=== PATIENT | female | born 1965 | race Caucasian/White ===

== ENCOUNTER → 2017-05-09 | Outpatient (CLI) | payer OTHER ==
--- NOTE | 2017-05-09 17:24 | CT ---
EXAMINATION TYPE: CT chest w con DATE OF EXAM: 05/09/2017 COMPARISON: NONE HISTORY: Left arm swelling mid forearm through hand x 4 months. Lumpectomy after breast cancer to lef t side. CT DLP: 311.30 mGycm Automated exposure control for dose reduction was used. CONTRAST: CT scan of the chest is performed with IV Contrast, patient injected with 100 mL of Omnipaque 300. FINDINGS: There is minimal subpleural reticular density in the lingula left upper lobe. There is no evidence of a pulmonary mass. There is no pleural effusion. There is no mediastinal adenopathy. There are no hil ar masses. Heart size is normal. There are a few bilateral axillary lymph nodes and more on the right side that measure up to 12 mm. I see no bony destructive process. There is spurring in the thoracic spine. Thoracic aorta is intact. IMPRESSION: Minimal subpleural interstitial density in the lingula left upper lobe of uncertain sign ificance. I do not see a cause for left arm swelling.
== END | disposition home or self-care (01) ==
LOC: RADCTMAIN 16:47
PROVIDERS: ATTEND Internal Medicine Hematology & Oncology
DX: C50.212 Malignant neoplasm of upper-inner quadrant of left female breast (principal); Z88.2 Allergy status to sulfonamides
CPT/HCPCS: 71260; Q9967

== ENCOUNTER → 2017-10-25 | Outpatient (CLI) | payer OTHER ==
[2017-10-25 15:58] LABS: Basophils % (A) 1 %; Eosinophils # (A) 0.2 k/uL (0-0.7); Eosinophils % (A) 3 %; HCT 40.1 % (34.0-46.0); HGB 12.5 gm/dL (11.4-16.0); Lymphocytes # (A) 2.1 k/uL (1.0-4.8); Lymphocytes % (A) 27 %; MCH 30.3 pg (25.0-35.0); MCHC 31.2 g/dL (31.0-37.0); Mean Platelet Volume 6.4; Monocytes # (A) 0.4 k/uL (0-1.0); Monocytes % (A) 5 %; Neutrophils % (A) 63 %; Platelet Count 263 k/uL (150-450); RBC 4.14 m/uL (3.80-5.40); RDW 12.7 % (11.5-15.5); WBC 7.9 k/uL (3.8-10.6)
== END | disposition home or self-care (01) ==
LOC: LABPAT 15:43
PROVIDERS: ATTEND Obstetrics & Gynecology
DX: Z01.812 Encounter for preprocedural laboratory examination (principal); N85.00 Endometrial hyperplasia, unspecified
CPT/HCPCS: 36415; 85025

== ENCOUNTER 2017-10-31 05:49 | Day surgery (SDC) | payer OTHER ==
[2017-10-26 14:55] VITALS: BMI 27.4
[~2017-10-31 05:49] MED LIST: LACTATED RINGERS 1,000 ML IV SCH; MIDAZOLAM 2 MG/2 ML VIAL IV PRN; MORPHINE SULFATE 4 MG/ML SYRINGE IV PRN; ONDANSETRON 4 MG/2 ML VIAL IVP ONE; Pre Op ABX Message 1 EACH MISC MISCELLANE ONE; SCOPOLAMINE 1.5MG/72HR PATCH TRANSDERM ONE
[2017-10-31] MEDS ORDERED: LACTATED RINGERS 1,000 ML IV ONE (06:26)
[2017-10-31] MEDS ORDERED: DEXAMETHASONE SOD PHOS (MDV) 100 MG/10 ML VIAL IVP ONE (06:27)
[2017-10-31] MEDS ORDERED: MIDAZOLAM 2 MG/2 ML VIAL ONE (07:23)
[2017-10-31] MEDS ORDERED: PROPOFOL 10 MG/ML 20 ML VIAL IV ONE (07:23)
[2017-10-31] MEDS ORDERED: fentaNYL (PF) 50 MCG/ML 2 ML AMP ONE (07:23)
[2017-10-31] MEDS ORDERED: KETOROLAC 30 MG/ML 1 ML VIAL ONE (07:23)
[2017-10-31] MEDS ORDERED: LIDOCAINE 1% INJ 10MG/ML (20 ML MDV) ONE (07:23)
[2017-10-31 08:12] VITALS: TEMP 97.8
--- NOTE | 2017-10-31 08:19 | P.OP ---
Date of Procedure: 10/31/17 Preoperative Diagnosis: Postmenopausal bleeding, endometrial hyperplasia without atypia, patient on tamoxifen for breast cancer. Postoperative Diagnosis: Grade 2-3 uterine prolapse, large multiparous cervix, endometrial polyps. Procedure(s) Performed: Hysteroscopy, fractional D&C, polypectomy Anesthesia: PRIYANK Surgeon: Francie Spring Estimated Blood Loss (ml): 10 IV fluids (ml): 400 Urine output (ml): 500 Pathology: other (Endocervical and endometrial curettings) Condition: stable Disposition: PACU Operative Findings: Large multiparous cervix, grade 2-3 uterine prolapse, endometrial polyps. Negative adnexa bilaterally. Description of Procedure: Patient is brought to the operating suite where a general anesthetic is administered without difficulty. She's placed in the dorsal lithotomy position. The cervix, vagina, perineum and lower abdomen are all prepped and draped in the usual sterile fashion. The appropriate timeout is performed to assure proper patient and procedural identification. Bladder is drained for approximate 500 mL of clear yellow urine. Examination under anesthesia reveals a retroverted uterus slightly enlarged, very large multiparous cervix, negative adnexa bilaterally. The anterior lip of the cervix is gently grasped with a double-tooth tenaculum. Telfa is placed and a Kevorkian curette is used and endocervical curettage is performed. Uterus then sounds to a depth of 8 cm in the retroverted position. Cervix is gently and systematically dilated using Hanks dilators. The hysteroscope was placed and the cavity is distended using sterile saline. Inspection of the cavity reveals multiple small uterine polyps. No obvious masses fibroids or tumors are noted. Hysteroscope was removed. Cervix is then dilated completely and a medium sharp curette is used and the uterus is thoroughly and gently curettaged for a fair amount of tissue including multiple small polyps. When this is completed, a polyp forcep was introduced and an additional polyp is obtained. Hysteroscope is replaced, cavity is noted to be free of any remaining polyps or tissue. Toradol is given prior to leaving the operative suite. All sponge needle and enhancement counts are correct. Patient is brought back to the recovery room in good condition with stable vital signs including a pulse of 60, blood pressure 102/61, 99% O2 saturation. She will follow-up with me in the office in 2 weeks.
[2017-10-31 08:50] VITALS: PULSE 74
[2017-10-31 09:06] VITALS: BP 142/88; RESP 16
== END 2017-10-31 09:19 | disposition home or self-care (01) ==
LOC: OR 05:49
PROVIDERS: ATTEND Obstetrics & Gynecology
DX: N84.0 Polyp of corpus uteri (principal); N81.3 Complete uterovaginal prolapse; N88.8 Other specified noninflammatory disorders of cervix uteri; N95.0 Postmenopausal bleeding; Z85.3 Personal history of malignant neoplasm of breast; Z79.810 Long term (current) use of selective estrogen receptor modulators (SERMs); Z88.1 Allergy status to other antibiotic agents; Z88.2 Allergy status to sulfonamides; Z80.3 Family history of malignant neoplasm of breast; Z80.7 Family history of other malignant neoplasms of lymphoid, hematopoietic and related tissues; Z80.42 Family history of malignant neoplasm of prostate; Z87.891 Personal history of nicotine dependence
CPT/HCPCS: 88305; 58558; J2250; J2405; J2001; J3010; J1885; J1100; J2704

== ENCOUNTER 2020-06-06 07:14 | Emergency (ER) | payer OTHER ==
[2020-06-06] MEDS ORDERED: oxyCODONE-APAP 7.5-325MG 1 EACH TAB PO STA (07:39)
[2020-06-06] MEDS ORDERED: LIDOCAINE 5% PATCH TOPICAL STA (07:39)
--- NOTE | 2020-06-06 07:43 | ED ---
General Adult HPI - General Chief complaint: Chest Pain Stated complaint: chest pain Time Seen by Provider: 06/06/20 07:24 Source: patient, family Mode of arrival: wheelchair Limitations: no limitations - History of Present Illness Initial comments: Dictation was produced using [employer] dictation software. please excuse any grammatical, word or spelling errors. This patient was cared for during a federal and state declared state of emergency secondary to Covid 19 Chief Complaint: 55-year-old female presents with 1 week of left-sided chest pain. History of Present Illness: 55-year-old female presents with 1 week of left- sided chest pain. Prior to onset of her symptoms she was moving around furniture to reorganizes her house. Patient states that her pain is located to the left anterior chest pressure she has history of breast cancer to the left breast that is currently in remission. Patient states she has pain over the left anterior ribs. Worse with movement and palpation to the area. Patient denies any pressure-like sensation to the substernal area. There is no radiation to the shoulders or jaw. No associated dizziness or diaphoresis. Patient has no history of heart disease. Patient denies any shortness of breath. Symptoms are worse with movement. The ROS documented in this emergency department record has been reviewed and confirmed by me. Those systems with pertinent positive or negative responses have been documented in the HPI. All other systems are other negative and/or noncontributory. PHYSICAL EXAM: General Impression: Alert and oriented x3, not in acute distress HEENT: Normocephalic atraumatic, extra-ocular movements intact, pupils equal and reactive to light bilaterally, mucous membranes moist. Cardiovascular: Heart regular rate and rhythm Chest: Able to complete full sentences, no retractions, no tachypnea palpatory tenderness to the left rib margin at approximately leave the eighth and ninth anterior ribs Abdomen: abdomen soft, non-tender, non-distended, no organomegaly Musculoskeletal: Pulses present and equal in all extremities, no peripheral edema Motor: no focal deficits noted Neurological: CN II-XII grossly intact, no focal motor or sensory deficits noted Skin: Intact with no visualized rashes Psych: Normal affect and mood ED course: 55-year-old female presents with clinical presentation consistent with costochondritis. All signs upon arrival are within acceptable limits. EKGs benign. Patient does not have any symptoms suggestive of ACS type chest pain. Pain is clearly reproducible at bedside. Rib x-rays a chest x-ray shows left sixth rib fracture. Patient is reevaluated at bedside. She is notified of the x-ray results. Patient given Lidoderm patch and analgesics coma. Patient given return precautions. Patient will be discharged told to follow-up with primary care physician. EKG interpretation: Ventricular rate 77, normal sinus rhythm, DC interval 164, QRS 82, QTc 439. No DC prolongation, no QTC prolongation, no ST or T-wave changes noted. Overall, this EKG is unremarkable - Related Data Home Medications Medication Instructions Recorded Confirmed Ibuprofen Pm 1 tab PO DAILY PRN 10/26/17 10/31/17 Tamoxifen Citrate 20 mg PO QAM 10/26/17 10/26/17 Previous Rx's Medication Instructions Recorded HYDROcodone/APAP 5-325MG [Holliday 1 tab PO Q6HR PRN 3 Days #12 tab 06/06/20 5-325] Allergies Allergy/AdvReac Type Severity Reaction Status Date / Time bacitracin Allergy BLISTERS Verified 06/06/20 07:21 [From Neosporin ([id number])] hydrocortisone Allergy BLISTERS Verified 06/06/20 07:21 neomycin Allergy BLISTERS Verified 06/06/20 07:21 [From Neosporin ([id number])] polymyxin B Allergy BLISTERS Verified 06/06/20 07:21 [From Neosporin ([id number])] Sulfa (Sulfonamide Allergy Rash/Hives Verified 06/06/20 07:21 Antibiotics) Review of Systems ROS Statement: Those systems with pertinent positive or pertinent negative responses have been documented in the HPI. ROS Other: All systems not noted in ROS Statement are negative. Past Medical History Past Medical History: Cancer, Hypertension, Osteoarthritis (OA) Additional Past Medical History / Comment(s): POST MENAPAUSAL BLEEDING, LEFT breast cancer dx 2013, LEFT BREAST RADIATION 2013, PAST HX OF HTN History of Any Multi-Drug Resistant Organisms: None Reported Past Surgical History: Orthopedic Surgery Additional Past Surgical History / Comment(s): LEFT BREAST LUMPECTOMY AND LYMPH REMOVAL, shoshana foot surgery Past Anesthesia/Blood Transfusion Reactions: Postoperative Nausea & Vomiting (PONV) Past Psychological History: No Psychological Hx Reported Smoking Status: Current every day smoker Past Alcohol Use History: Occasional Past Drug Use History: None Reported - Past Family History Father Family Medical History: Cancer Sister(s) Family Medical History: Cancer General Exam Limitations: no limitations Course Vital Signs 06/06/20 07:18 Temperature 97.8 F Pulse Rate 89 Respiratory 18 Rate Blood Pressure 165/108 O2 Sat by Pulse 97 Oximetry Disposition Clinical Impression: Rib fracture Disposition: HOME SELF-CARE Condition: Good Instructions (If sedation given, give patient instructions): Rib Fracture (ED) Prescriptions: HYDROcodone/APAP 5-325MG [Holliday 5-325] 1 tab PO Q6HR PRN 3 Days #12 tab PRN Reason: Severe Pain Is patient prescribed a controlled substance at d/c from ED?: Yes If prescribed controlled substance>3 days was MAPS reviewed?: Prescribed <3 Days Referrals: Juan Ramon Taylor MD [Primary Care Provider] - 1-2 days Time of Disposition: 08:30
--- NOTE | 2020-06-06 08:26 | XR ---
Chest x-ray and left RIBS HISTORY: Rib pain, history of cancer Frontal view of the chest and 4 views of the left ribs correlated prior chest x-ray dated 02/08/2014, chest CT 05/09/2017 There is no evident airspace disease, pneumothorax, or pleural effusion. Surgical clips are present o gisselle the left mid chest status post lumpectomy. There is mild spinal curvature, thoracic spondylosis i s present. There is a fracture present at the sixth rib laterally which is displaced and shows probab le periosteal new bone formation, some local pleural thickening. IMPRESSION: Left sixth rib fracture, atelectatic fracture not excluded. Consider bone scan.
[2020-06-06 09:15] VITALS: BP 136/81; PULSE 80; RESP 16; TEMP 98
== END 2020-06-06 08:40 | disposition home or self-care (01) ==
LOC: EC 07:14
DX: S22.32XA Fracture of one rib, left side, initial encounter for closed fracture (principal); F17.200 Nicotine dependence, unspecified, uncomplicated; M19.90 Unspecified osteoarthritis, unspecified site; C50.912 Malignant neoplasm of unspecified site of left female breast; Z79.818 Long term (current) use of other agents affecting estrogen receptors and estrogen levels; Z88.1 Allergy status to other antibiotic agents; Z88.2 Allergy status to sulfonamides; Z88.8 Allergy status to other drugs, medicaments and biological substances; Z80.9 Family history of malignant neoplasm, unspecified; Z92.3 Personal history of irradiation; X58.XXXA Exposure to other specified factors, initial encounter
CPT/HCPCS: 93005; 99285